=== PATIENT | male | born 1990 ===

== ENCOUNTER 2019-04-14 13:15 | Outpatient (CLI) | payer OTHER ==
[~2019-04-14] VITALS: Ht 175.3 cm; Wt 74.8 kg
[2019-04-14] MEDS ORDERED: AMOX-CLAV 875-1 EACH PO (13:21)
[2019-04-14] MEDS ORDERED: ZANTAC300 MG PO (13:21)
== END 2019-04-14 16:02 | disposition home or self-care (01) ==
LOC: OFIC 805 13:15
DX: J35.1 Hypertrophy of tonsils (principal); J37.0 Chronic laryngitis; J35.01 Chronic tonsillitis; J31.0 Chronic rhinitis; H61.21 Impacted cerumen, right ear; R49.9 Unspecified voice and resonance disorder